=== PATIENT | male | born 1950 | race Caucasian/White ===

== ENCOUNTER 2018-09-06 20:54 | Inpatient (IN) | payer MEDICARE, OTHER ==
[~2018-09-06] VITALS: Ht 175.3 cm; Wt 68.9 kg
[2018-09-06] MEDS ORDERED: CICL34.62 TP (21:25)
[2018-09-06] MEDS ORDERED: KETO120S6 TP (21:25)
[2018-09-06] MEDS ORDERED: MIRT15TA7 PO (21:25)
[2018-09-06] MEDS ORDERED: CLOT15CR63 TP (21:25)
[2018-09-06] MEDS ORDERED: CYCL30DR OP (21:25)
--- NOTE | 2018-09-06 21:25 | NUR ---
Dr. Jasso at bedside for MSE.
[2018-09-06] MEDS ORDERED: ZOLP5TAB8 PO (21:29)
[2018-09-06] MEDS ORDERED: ACETAMINOPHEN 325 MG TABLET PO ONE (21:45)
--- NOTE | 2018-09-06 22:04 | NUR ---
Dr. Jasso spoke with Lilliam Soto RN PET.
--- NOTE | 2018-09-06 22:35 | NUR ---
Lilliam Soto RN at bedside evaluating patient.
--- NOTE | 2018-09-06 22:53 | NUR ---
Report given to Lily ROSA.
--- NOTE | 2018-09-06 23:10 | NUR ---
GPS: ADMITTED 68YEAR OLD MALE FOR DX: OF DEPRESSION UNDER / FROM ER TO [facility] ROOM 137A VIA W/. ASSISTED IN BED. ALERT AND ORIENTED X3 AMBULATORY. NO C /O PAIN OR DISC OMFORT AT THIS TIME. V/S TAKEN. NO C /O DEPRESSION AT THIS TIME.INSTRUCTED TEACHER HEARING IMPAIRED C ALL NURSE FOR PAIN OR ASSISTANE. BED ALARM ON.BELONG LIST COMPLETED. CONTINUE MONITORING FOR SAFETY.
[2018-09-06 23:15] VITALS: BP 143/83
[2018-09-06] MEDS ORDERED: LORAZEPAM 1 MG TABLET PO PRN (23:45)
[2018-09-06] MEDS ORDERED: MAGNESIUM HYDROXIDE 30 ML LIQUID UDC PO PRN (23:45)
[2018-09-06] MEDS ORDERED: ACETAMINOPHEN 325 MG TABLET PO PRN (23:45)
[2018-09-06] MEDS ORDERED: MAG HYDROX/AL HYDROX/SIMETH 30 ML LIQUID UDC PO PRN (23:45)
[2018-09-07] MEDS: TEMAZEPAM 7.5 MG CAPSULE PO PRN ×2 (00:02→21:46)
[2018-09-07 01:00] VITALS: BP 143/83
--- NOTE | 2018-09-07 06:00 | NUR ---
GPS: Remain calm and cooperative with medications and care. slept 6:15 hrs after sleeping medication given. no anxiety noted, mild depression noted. resting in bed quietly. Refused shower. continue plan of care.
[2018-09-07 07:30] VITALS: BP 143/63
[2018-09-07 15:13] VITALS: BP 149/60
[2018-09-07] MEDS: HYDROCHLOROTHIAZIDE 12.5 MG CAPSULE PO SCH (19:14)
[2018-09-07 19:58] VITALS: BP 125/55
[2018-09-07] MEDS ORDERED: TRAZODONE 50 MG TABLET PO SCH (21:00)
--- NOTE | 2018-09-08 05:31 | NUR ---
GPS: Remain calm and cooperative with medications and care. Restoril 7.5 mg po given for sleep. no anxiety noted, mild depression noted. resting in bed quietly. showered last night.. continue plan of care.
--- NOTE | 2018-09-08 05:54 | NUR ---
GPS: SLEPT 9:30 HRS THROUGH THE NIGHT.
[2018-09-08 07:04] LABS: BASOPHILS % (AUTO) 0.6 % (0.0-2.0); EOSINOPHILS # (AUTO) 0.1 K/uL (0.0-0.7); EOSINOPHILS % (AUTO) 1.4 % (0.0-7.0); HEMATOCRIT 37.8 % (36.7-47.1); HEMOGLOBIN 12.8 g/dL (12.5-16.3); LYMPHOCYTES # (AUTO) 1.7 K/uL (20.0-40.0); LYMPHOCYTES % (AUTO) 28.7 % (20.5-51.5); MEAN CORPUSCULAR HEMOGLOBIN 30.8 uug (23.8-33.4); MEAN CORPUSCULAR HGB CONC 34 g/dL (32.5-36.3); MEAN CORPUSCULAR VOLUME 90.9 fL (73.0-96.2); MONOCYTES # (AUTO) 0.6 K/uL (2.0-10.0); MONOCYTES % (AUTO) 9.8 % (0.0-11.0); NEUTROPHILS # (AUTO) 3.6 K/uL (1.8-8.9); NEUTROPHILS % (AUTO) 59.5 % (38.5-71.5); PLATELET COUNT (AUTO) 176 K/uL (152-348); RED BLOOD CELL COUNT(AUTO) 4.16 MIL/uL (4.06-5.63)
[2018-09-08 07:36] LABS: THYROID STIMULATING HORMONE 0.745 mIU/mL (0.358-3.740)
[2018-09-08 07:47] VITALS: BP 100/56
[2018-09-08 07:55] LABS: BILIRUBIN,TOTAL 0.5 mg/dL (0.2-1.0); CREATININE 0.9 mg/dL (0.6-1.3); MAGNESIUM 1.8 mg/dL (1.8-2.4); PHOSPHOROUS 2.9 mg/dL (2.5-4.9); TOTAL PROTEIN, SERUM 6.7 g/dL (6.4-8.2)
[2018-09-08] MEDS: CLOTRIMAZOLE 1% CREAM 30 GM TUBE TP SCH ×2 (08:10→16:53)
[2018-09-08] MEDS: HYDROCHLOROTHIAZIDE 12.5 MG CAPSULE PO SCH (09:00)
[2018-09-08] MEDS ORDERED: POTASSIUM CHLORIDE 20 MEQ TAB.PRT.SR PO ONE (11:45)
[2018-09-08 15:23] VITALS: BP 151/67
[2018-09-08 18:35] LABS: *BLOOD, URINE NEGATIVE (NEGATIVE); *KETONES,URINE 2+ (NEGATIVE); *PROTEIN,URINE TRACE (NEGATIVE); LEUKOCYTE ESTERASE ,URINE NEGATIVE (NEGATIVE); NITRITE, URINE NEGATIVE (NEGATIVE); PH,URINE 5.5 (5.0-8.0); UGLUCOSE NEGATIVE (NEGATIVE)
[2018-09-08 19:38] LABS: *BILIRUBIN,URIN 1+ (NEGATIVE); *CLARITY,URINE SLIGHTLY HAZY (CLEAR)
[2018-09-08 19:39] LABS: *COLOR,URINE DARK YELLOW (YELLOW)
[2018-09-08 19:40] LABS: MUCUS,URINE MANY /LPF (0-FEW)
[2018-09-08 20:01] VITALS: BP 127/65
[2018-09-08] MEDS: TRAZODONE 100 MG TABLET PO SCH (20:02)
[2018-09-08] MEDS: TEMAZEPAM 7.5 MG CAPSULE PO PRN (22:10)
[2018-09-09 07:30] VITALS: BP 120/58
[2018-09-09] MEDS: CLOTRIMAZOLE 1% CREAM 30 GM TUBE TP SCH ×2 (08:08→16:28)
[2018-09-09] MEDS: HYDROCHLOROTHIAZIDE 12.5 MG CAPSULE PO SCH (08:08)
[2018-09-09 15:57] VITALS: BP 127/52
--- NOTE | 2018-09-09 17:38 | NUR ---
patient compliant with all medication,remains isolative withdraw ,denies any SI.
[2018-09-09 20:00] VITALS: BP 137/63
[2018-09-09] MEDS: TRAZODONE 100 MG TABLET PO SCH (20:08)
[2018-09-09] MEDS: TEMAZEPAM 7.5 MG CAPSULE PO PRN (22:26)
--- NOTE | 2018-09-10 05:59 | NUR ---
GPS: REMAIN CALM AND COOPERATIVE WITH MEDICATIONS AND CARE. SLEPT 6:30 HRS THROUGH THE NIGHT AFTER RESTORIL 7.5 MG PO GIVEN. DENIES SI AT THIS TIME. CONTINUE PLAN OF CARE.
[2018-09-10 07:20] LABS: POTASSIUM 3.2 mmol/L (3.5-5.1)
[2018-09-10 07:30] VITALS: BP 107/49
[2018-09-10] MEDS: HYDROCHLOROTHIAZIDE 12.5 MG CAPSULE PO SCH (08:05)
[2018-09-10] MEDS: CLOTRIMAZOLE 1% CREAM 30 GM TUBE TP SCH ×2 (08:05→16:16)
[2018-09-10] MEDS ORDERED: POTASSIUM CHLORIDE 20 MEQ TAB.PRT.SR PO ONE (12:15)
[2018-09-10 16:41] VITALS: BP 110/48
[2018-09-10] MEDS: TRAZODONE 100 MG TABLET PO SCH (20:02)
[2018-09-10 20:37] VITALS: BP 123/70
[2018-09-10] MEDS: TEMAZEPAM 7.5 MG CAPSULE PO PRN (22:03)
--- NOTE | 2018-09-11 05:56 | NUR ---
GPS: REMAIN CALM AND COOPERATIVE WITH MEDICATIONS AND CARE. SLEPT 8 HRS THROUGH THE NIGHT AFTER RESTORIL 7.5 MG PO GIVEN. DENIES SI AT THIS TIME. CONTINUE MONITOR FOR SAFETY.
[2018-09-11 07:30] VITALS: BP 132/70
[2018-09-11] MEDS: HYDROCHLOROTHIAZIDE 12.5 MG CAPSULE PO SCH (09:12)
[2018-09-11] MEDS: CLOTRIMAZOLE 1% CREAM 30 GM TUBE TP SCH ×2 (09:13→17:35)
--- NOTE | 2018-09-11 14:45 | NUR ---
Discharge Planning: During morning rounds, patient RN stated she had spoken with patient , Mariel [[phone]], who stated that patient has been living with her but would just "leave whenever." Per RN conversation with , patient is welcome back into home. Upon social group worker and social work advisory internship conversation with patient, he states that he was living with his but briefly. Patient states that he began to feel "weird" and "dizzy" and just "not right" so he left. Patient states he would think about returning home with his , whom he states is his "ex-". Patient also stated that he has begun to "see things". putty and patch worker questioned what he meant and patient states he began seeing "shadows" in his room. Patient states this has been happening for 1 month. Patient denies auditory hallucinations. putty and patch worker will relay patient symptoms to attending psychiatrist. putty and patch worker will continue to plan a safe and proper discharge.
--- NOTE | 2018-09-11 15:29 | NUR ---
Group Activity Note: Patients were asked to listen to music and engage in conversation about their favorite music/genre of music/and memories they have of music. Subjective: "I like rock and roll." Objective: Patient declined the invitation to join in on the activity initially; however, he arrived to group about 15 minutes later. Patient did not engage in conversation with his peers. Patient left group 10 minutes early. Assessment: Needs support and encouragement with engaging with peers. Plan: Encourage group attendance as scheduled.
[2018-09-11 16:01] VITALS: BP 136/77
[2018-09-11 19:52] VITALS: BP 144/74
[2018-09-11] MEDS: TRAZODONE 100 MG TABLET PO SCH (20:04)
[2018-09-11] MEDS: TEMAZEPAM 7.5 MG CAPSULE PO PRN (23:48)
--- NOTE | 2018-09-12 06:16 | NUR ---
GPS: REMAIN CALM AND COOPERATIVE WITH MEDICATIONS AND CARE. SLEPT 9 HRS THROUGH THE NIGHT AFTER RESTORIL 7.5 MG PO GIVEN. DENIES SI AT THIS TIME. CONTINUE MONITOR FOR SAFETY.
[2018-09-12 07:30] VITALS: BP 147/73
[2018-09-12] MEDS: HYDROCHLOROTHIAZIDE 12.5 MG CAPSULE PO SCH (08:43)
[2018-09-12] MEDS: CLOTRIMAZOLE 1% CREAM 30 GM TUBE TP SCH ×2 (08:44→17:48)
[2018-09-12 16:13] VITALS: BP 160/67
[2018-09-12 20:00] VITALS: BP 154/83
[2018-09-12] MEDS: TRAZODONE 100 MG TABLET PO SCH (20:05)
[2018-09-12] MEDS ORDERED: risperiDONE 1 MG TABLET PO ONE (21:45)
[2018-09-13 06:58] LABS: CREATININE 1.1 mg/dL (0.6-1.3); MAGNESIUM 1.8 mg/dL (1.8-2.4); POTASSIUM 3.2 mmol/L (3.5-5.1)
[2018-09-13] MEDS: CLOTRIMAZOLE 1% CREAM 30 GM TUBE TP SCH ×2 (09:03→17:28)
[2018-09-13] MEDS: HYDROCHLOROTHIAZIDE 12.5 MG CAPSULE PO SCH (09:03)
[2018-09-13] MEDS: risperiDONE 1 MG TABLET PO SCH ×2 (09:03→20:04)
[2018-09-13 10:43] VITALS: BP 146/70
[2018-09-13] MEDS ORDERED: POTASSIUM CHLORIDE 20 MEQ TAB.PRT.SR PO ONE (11:00)
[2018-09-13 15:56] VITALS: BP 145/64
[2018-09-13] MEDS: TRAZODONE 100 MG TABLET PO SCH (20:04)
[2018-09-13] MEDS: TEMAZEPAM 7.5 MG CAPSULE PO PRN (22:20)
[2018-09-13 22:26] VITALS: BP 118/78
[2018-09-14 07:30] VITALS: BP 132/66
[2018-09-14] MEDS: risperiDONE 1 MG TABLET PO SCH ×2 (08:27→20:19)
[2018-09-14] MEDS: CLOTRIMAZOLE 1% CREAM 30 GM TUBE TP SCH ×2 (08:27→17:18)
[2018-09-14] MEDS: HYDROCHLOROTHIAZIDE 12.5 MG CAPSULE PO SCH (08:27)
[2018-09-14 15:29] VITALS: BP 153/70
[2018-09-14] MEDS: TRAZODONE 100 MG TABLET PO SCH (20:19)
[2018-09-14 20:36] VITALS: BP 156/75
--- NOTE | 2018-09-15 06:25 | NUR ---
GPS: REMAIN CALM AND COOPERATIVE. SLEPT 7:30 HRS THROUGH THE NIGHT. NO AGITATION NOTED AT THIS TIME.CONTINUE MONITOR FOR SAFETY.
[2018-09-15 07:30] VITALS: BP 120/67
[2018-09-15] MEDS: CLOTRIMAZOLE 1% CREAM 30 GM TUBE TP SCH ×2 (08:14→16:00)
[2018-09-15] MEDS: risperiDONE 1 MG TABLET PO SCH ×2 (08:14→20:10)
[2018-09-15] MEDS: HYDROCHLOROTHIAZIDE 12.5 MG CAPSULE PO SCH (08:14)
[2018-09-15 15:42] VITALS: BP 117/73
[2018-09-15] MEDS: TRAZODONE 100 MG TABLET PO SCH (20:10)
[2018-09-15 20:46] VITALS: BP 137/80
[2018-09-16 07:30] VITALS: BP 126/66
[2018-09-16 07:48] LABS: CREATININE 1.2 mg/dL (0.6-1.3); MAGNESIUM 2.1 mg/dL (1.8-2.4); POTASSIUM 3.7 mmol/L (3.5-5.1)
[2018-09-16] MEDS: CLOTRIMAZOLE 1% CREAM 30 GM TUBE TP SCH ×2 (08:23→16:44)
[2018-09-16] MEDS: HYDROCHLOROTHIAZIDE 12.5 MG CAPSULE PO SCH (08:24)
[2018-09-16] MEDS: risperiDONE 1 MG TABLET PO SCH ×2 (08:24→20:22)
[2018-09-16] MEDS: POTASSIUM CHLORIDE 8 MEQ TAB.PRT.SR PO SCH (09:00)
--- NOTE | 2018-09-16 12:46 | NUR ---
Discharge Planning: nursery worker had conversation with patient about discharge plan. Patient is aware that he is allowed to return back home with ex-, Mariel [[phone]], and that she will provide transportation. Per patient he would like to return there but feels he "is not ready yet". Patient states that he feels bad in "every way". When pushed to elaborate, patient was unable to express what he meant by "every way". Patient states that he couldn't eat his lunch because he doesn't feel good and that he only ate a little bit of breakfast. Patient denies having SI, but states "I don't feel like being alive". When asked to state what patient thinks will improve his mood, patient states "more time". nursery worker suggested having psychologist come talk with him and he agreed. nursery worker relayed this information to Dr. Conway and charge weigher. It appears that patient may be manipulative and trying to stay longer on unit. nursery worker collaborating with Dr. Conway on tentative discharge date. nursery worker will continue to plan a safe and proper discharge.
[2018-09-16 16:43] VITALS: BP 141/82
[2018-09-16] MEDS: TRAZODONE 100 MG TABLET PO SCH (20:22)
[2018-09-16 20:36] VITALS: BP 132/66
[2018-09-16] MEDS: TEMAZEPAM 7.5 MG CAPSULE PO PRN (22:51)
[2018-09-17 07:30] VITALS: BP 121/68
[2018-09-17] MEDS: risperiDONE 1 MG TABLET PO SCH (08:35)
[2018-09-17] MEDS: HYDROCHLOROTHIAZIDE 12.5 MG CAPSULE PO SCH (08:35)
[2018-09-17] MEDS: CLOTRIMAZOLE 1% CREAM 30 GM TUBE TP SCH (08:36)
[2018-09-17] MEDS: POTASSIUM CHLORIDE 8 MEQ TAB.PRT.SR PO SCH (08:46)
--- NOTE | 2018-09-17 10:53 | NUR ---
DISCHARGE NOTE: Patient will be discharged back to his home with his ex-, Mariel [[address] [place] [address]; ] and transportation will be provided by patients son, Rosendo Wylie [[phone]] at 2:00pm. Patients ex- and emergency contact, Mariel, was contacted and informed and agreeable with discharge plan. Patient is alert and oriented x3, is able to plan for self-care, and denies any SI/HI. Patient is aware and agreeable with discharge plans. Patient will continue to follow-up with his Primary Care Physician, Dr. Singleton [[address], [place] [address]; ]. Patient does not currently have a psychiatrist and perinatal social worker has provided patient with a list of Medicare accepting psychiatrists in the [facility]. Patient was provided additional mental health referrals in the [facility] including [facility] [[address] [place] [address]; ], [facility] [ ], and the National Suicide Prevention Lifeline [ ]. Addendum: 09/17/18 at 1145 by CRISTINO SINHA Additional Information: cushion worker contacted Dr. Singleton's office [[phone]] and spoke with Nataliya montgomery. Per Nataliya,she has sent a message to manager case management to set up a post-hospitalization appointment for patient. Once appointment set-up, manager case management will call patient [[phone]] with appointment information. Patient discharge packet was faxed to doctor's office.
--- NOTE | 2018-09-17 15:45 | NUR ---
1345 Discharge intructions given to patient regarding medications to continue at home and prescription given both psychiatry and medicine, instructed to filled to his pharmacy- patient verbalized understanding.1545 Patient picked up by son and went home via private car stable condition. Patient denies SI/HI. No delusion. No hallucination noted.
== END 2018-09-17 15:45 | disposition home or self-care (01) | DRG 885 ==
LOC: ER 20:54 → GPS 23:03
PROVIDERS: ADMIT Psychiatry & Neurology Psychiatry; ATTEND Internal Medicine
DX: F33.3 Major depressive disorder, recurrent, severe with psychotic symptoms (principal); I48.92 Unspecified atrial flutter; I10 Essential (primary) hypertension; E11.9 Type 2 diabetes mellitus without complications; Z59.0 Homelessness; E87.6 Hypokalemia; E88.09 Other disorders of plasma-protein metabolism, not elsewhere classified; E67.8 Other specified hyperalimentation
CPT/HCPCS: 36415; 83735; 84100; 84443; 85025; 87086; 93005; A4663